=== PATIENT | male | born 1955 | race Caucasian/White ===

== ENCOUNTER 2018-09-06 19:23 | Emergency (ER) | payer MEDICAID ==
[~2018-09-06] VITALS: Ht 180.3 cm; Wt 81.8 kg
[2018-09-06 20:44] LABS: HEMATOCRIT 51.9 % (39.0-50.0); HEMOGLOBIN 18.1 g/dl (14.0-18.0); IMMATURE GRANULOCYTES 0.5 % (0.0-5.0); MEAN CELL VOLUME 91.5 fL CALC (80.0-100.0); MEAN CORPUSCULAR HGB 31.9 pG CALC (26.0-32.0); MEAN CORPUSCULAR HGB CONC 34.9 g/L CALC (32.0-36.0); NEUT# 14.24 thou/uL (1.82-7.42); RED BLOOD COUNT 5.67 mill/uL (4.70-6.10)
[2018-09-06 20:59] LABS: URINE BLOOD DIPSTICK LARGE (NEGATIVE); URINE COLOR YELLOW; URINE GLUCOSE - DIPSTICK NEGATIVE (NEGATIVE); URINE KETONE >=80 mg/dL (NEGATIVE); URINE LEUK ESTERASE NEGATIVE (NEGATIVE); URINE NITRITE - DIPSTICK NEGATIVE (Negative); URINE PROTEIN - DIPSTICK 30 mg/dL (NEG-TRACE); URINE SPECIFIC GRAVITY 1.025; URINE UROBILINOGEN - DIPSTICK 0.2 E.U./dL (0.2)
[2018-09-06 21:05] LABS: ALBUMIN 4.5 g/dL (3.2-5.0); ALKALINE PHOSPHATASE 84 u/l (38-126); AMYLASE 36 u/l (30-110); ANION GAP 19 (6-22 (CALC)); BILIRUBIN, TOTAL 1.5 mg/dL (0.0-1.4); BUN 11 mg/dL (8-23); BUN/CREATININE RATIO 17 (12-20 (CALC)); CARBON DIOXIDE 24 mmol/l (22-30); CHLORIDE 97 mmol/l (95-108); CREATININE 0.7 mg/dL (0.7-1.3); GFR > 60 ML/MIN (>=60 (CALC)); GFR FOR AFR.AMER. > 60 ML/MIN (>=60 (CALC)); LIPASE 35 u/l (23-300); POTASSIUM 4.8 mmol/l (3.5-5.1); SGOT/AST 35 u/l (19-48); SODIUM 136 mmol/l (137-146); TOTAL PROTEIN 7.3 g/dL (6.3-8.2)
[2018-09-06 21:17] LABS: URINE BILIRUBIN - DIPSTICK SMALL (NEGATIVE)
[2018-09-06 21:18] LABS: URINE RBC TNTC RBC/hpf (0-5); URINE SQUAMOUS EPITHELIAL CELL FEW EPI/hpf (0-FEW)
[2018-09-06] MEDS ORDERED: SYMBICORT1 AE1 IN (23:33)
[2018-09-06] MEDS ORDERED: PROAIR HFA108 MCG/AC IN (23:35)
[2018-09-06] MEDS ORDERED: PRILOSEC20 MG PO (23:36)
[2018-09-06] MEDS ORDERED: CIPROFLOXACIN500 M1 PO (23:37)
[2018-09-06 23:55] VITALS: BP 128/82
== END 2018-09-06 23:55 | disposition short-term general hospital (02) ==
LOC: ED 19:23
PROVIDERS: Family Medicine
DX: R10.84 Generalized abdominal pain (principal); C61 Malignant neoplasm of prostate; J45.909 Unspecified asthma, uncomplicated; F17.200 Nicotine dependence, unspecified, uncomplicated; Z98.890 Other specified postprocedural states; Z85.528 Personal history of other malignant neoplasm of kidney; R11.2 Nausea with vomiting, unspecified; K59.00 Constipation, unspecified

== ENCOUNTER 2019-10-23 | Emergency (ER) | payer MEDICAID ==
[~2019-10-23] MED LIST: CIPROFLOXACIN500 M1 PO; PRILOSEC20 MG PO; PROAIR HFA108 MCG/AC IN; SYMBICORT1 AE1 IN
[2019-10-23] MEDS ORDERED: SPIRIVA IN (19:47)
[2019-10-23 20:04] LABS: IMMATURE GRANULOCYTES 0.3 % (0.0-5.0); MEAN CELL VOLUME 93.9 fL CALC (80.0-100.0); MEAN CORPUSCULAR HGB 32.2 pG CALC (26.0-32.0); MEAN CORPUSCULAR HGB CONC 34.3 g/dL CAL (32.0-36.0); RED BLOOD COUNT 4.59 mill/uL (4.70-6.10); RED CELL DISTRI WIDTH 12.8 % (11.5-15.5)
[2019-10-23 20:05] LABS: HEMATOCRIT 43.1 % (39.0-50.0); HEMOGLOBIN 14.8 g/dl (14.0-18.0)
[2019-10-23 20:20] LABS: ALBUMIN 3.9 g/dL (3.2-5.0); ALKALINE PHOSPHATASE 60 u/l (38-126); BUN 9 mg/dL (8-23); BUN/CREATININE RATIO 11 (12-20 (CALC)); CARBON DIOXIDE 26 mmol/l (22-30); CHLORIDE 103 mmol/l (95-108); CREATININE 0.9 mg/dL (0.7-1.3); GFR > 60 ML/MIN (>=60 (CALC)); GFR FOR AFR.AMER. > 60 ML/MIN (>=60 (CALC)); SGOT/AST 24 u/l (19-48); SODIUM 137 mmol/l (137-146); TOTAL PROTEIN 6.7 g/dL (6.3-8.2)
[2019-10-23 20:22] LABS: ANION GAP 12 (6-22 (CALC)); BILIRUBIN, TOTAL 0.3 mg/dL (0.0-1.4); POTASSIUM 3.6 mmol/l (3.5-5.1)
[2019-10-23] MEDS ORDERED: HYDROCO/APAP1 TA9 PO (21:15)
== END 2019-10-23 21:56 | disposition home or self-care (01) | DRG 103 ==
DX: R51 Headache (principal); J44.9 Chronic obstructive pulmonary disease, unspecified; F17.200 Nicotine dependence, unspecified, uncomplicated